=== PATIENT | male | born 1985 | race Caucasian/White ===

== ENCOUNTER 2023-12-07 15:47 | Emergency (ER) | payer SELFPAY ==
[2023-12-07 15:44] VITALS: BP 143/80; PULSE 95; RESP 18; TEMP 36.8; O2SAT 99
--- NOTE | 2023-12-07 15:45 | RT.EKG_ITS ---
APPROVED REPORT Exam: Resting ECG Reason for Exam: withdrawl- methadone Patient Location: E HR:78 bpm ECG Measurements Heart Rate 78 AXIS DE 159 P 73 QRSd 80 QRS 76 QT 355 T 63 QTc 404 Conclusion Sinus rhythm...normal P axis, V-rate 60- 99 ST elev, probable normal early repol pattern...ST elevation, age<55 Narrow complex normal sinus rhythm at a rate of 78. Normal axis. Intervals within normal limits. M ild concave ST segment upsloping in V3. No prior for comparison. No acute injury pattern. No ST se gment depressions. T wave flattening in aVL.
[2023-12-07] MEDS: Ondansetron O.D.T. 4 MG TABEF PO (16:12)
[2023-12-07] MEDS: Famotidine 20 MG TAB 40 MG PO (16:12)
--- NOTE | 2023-12-07 16:27 | ED.GENADUL_ITS ---
HPI General Mode of arrival: ambulatory . Date/Time Provider Initiated Documentation: 12/07/23 15:47 . Limitations to Documentation: no limitations . Information obtained by: patient and RN notes reviewed . History of Present Illness 38 year old M presents to the emergency department with the chief complaint of Nausea vomiting, methadone withdrawal, described as moderate and similar to prior episodes, Patient started experiencing this day(s) (1) and it has been constant. No relieving factors improve symptom(s), Eating worsens symptoms . Patient notes no other symptoms.. Patient did receive the following treatments prior to arrival, none Related Data Home Medications Medication Instructions Recorded Confirmed methadone 10 mg/mL oral concentrate 80 mg PO DAILY 12/07/23 12/07/23 Allergies Allergy/AdvReac Type Severity Reaction Status Date / Time No Known Allergies Allergy Unverified 12/07/23 15:59 General Stated Complaint: DrugWithdr/MAT ARTURO: 3 Review of Systems Constitutional Constitutional: Reports chills, Reports excessive sweating, Denies fever(s), Denies headache(s) and Denies poor appetite ENT Ears, Nose, Mouth, and Throat: Denies headache(s), Reports nasal discharge and Denies sore throat Cardiovascular Cardiovascular: Denies chest pain and Denies dyspnea Respiratory Respiratory: Denies dyspnea Gastrointestinal Gastrointestinal: Denies abdominal pain, Reports diarrhea, Reports nausea and Reports vomiting Integumentary/Breasts Skin/Breast: Denies rash Neurologic Neurologic: Denies headache(s) and Reports tremor(s) Endocrine Endocrine: Reports excessive sweating and Reports flushing Exam Const General: cooperative Orientation: alert, awake and oriented x3 Resp Effort & Inspection: normal respiratory effort and able to speak in complete sentences Auscultation: clear to auscultation bilaterally Cardio Rate: regular rate Rhythm: regular rhythm Heart Sounds: S1 normal and S2 normal GI Palpation: soft, not firm, no guarding, no masses, no pulsatile masses, not rigid and nontender Auscultation: normal bowel sounds Back/Spine/Pelvis Back: no CVA tenderness Neuro General: patient alert, patient awake, patient oriented x3, gait normal and moves all extremities Course Vital Signs Vital signs: Vital Signs Temperature 36.8 C 12/07/23 15:44 Pulse 95 H 12/07/23 15:44 Respiratory Rate 18 12/07/23 15:44 Blood Pressure 143/80 H 12/07/23 15:44 Pulse Oximetry 99 12/07/23 15:44 Temperature 36.8 C 12/07/23 15:44 Temperature Source Oral 12/07/23 15:44 Pulse 95 H 12/07/23 15:44 Respiratory Rate 18 12/07/23 15:44 Respiratory Effort Normal 12/07/23 16:02 Blood Pressure 143/80 H 12/07/23 15:44 Blood Pressure Position Sitting 12/07/23 15:44 Pulse Oximetry 99 12/07/23 15:44 Oxygen Delivery Method Room Air 12/07/23 15:44 Oxygen Flow Rate 0 12/07/23 15:44 Medical Decision Making Patient presenting to the emergency department for chief complaint of methadone withdrawal. Patient reports his last dose was on Friday and he relocated to this area due to him being homeless and there being availability at local hotel. Patient states that he is withdrawn 3 times and has had similar symptoms. He complains of runny nose, vomiting, intermittent chills and agitation. He does report couple days ago he had some cocaine and that he is a daily drinker. Patient does state history of GERD with GERD like symptoms currently otherwise denies all past medical history. He states he has been on methadone for the last 3 years and came to the emergency department due to not wanting to utilize street drugs for opiate abuse anymore. Review of vital signs show slight hypertension, slight tachycardia but within normal range. Exam shows stable appearing patient with no acute distress and no worrisome exam findings. Will treat patient with Zofran, GI cocktail, and Pepcid. Will also perform EKG due to potential QT issues with Zofran and methadone. Please see physician interpretation for full interpretation of EKG but upon my review patient is in sinus rhythm, no worrisome QT findings otherwise noncontributory EKG with no signs of acute STEMI. Labs reviewed and CBC is unremarkable, CMP does show increase of AST ALT and alk phos otherwise nondiagnostic CMP, lipase is within normal range, alcohol is elevated at 74 but patient not clinically intoxicated. Was able to speak with [facility] and [facility] who verified patient's dose of 80 mg. Did inform them of patient's stated intention to switch to local clinic which they requested patient call the clinic for this arrangement. Patient was given his dose and did state improvement of other symptoms. After discussion of diagnosis and plan of care patient has no further needs, questions, or concerns and states clear understanding to return to the emergency department for any worsening symptoms. This documentation was generated using [employer] dictation system, please disregard any oddities of phrase or misspellings. Lab Data Lab results reviewed: Yes I reviewed the patient's lab results. Quality:SDOH Health Related Social Needs: Health related social needs inadequate housing, risk o f homeless, food insecurity, transpo insecurity, material hardship, personal safety PFSH All Active Problems (Updated 12/07/23 @ 17:34 by Jared Gonzales [employer]) Elevated liver enzymes (Acute) Acute narcotic withdrawal (Acute) GERD (gastroesophageal reflux disease) (Chronic) Social History Smoking/Tobacco Use Status: Current-Occasional Smoking risk assessment performed?: Yes Housing: homeless [facility] Have you Been Recently Intoxicated or Drunk Within the Last 30 days?: No Have you Ever Experienced Previous Episodes of Alcohol Withdrawal?: Yes Have you ever Experienced Withdrawal Seizures?: No Have you ever Experienced Delirium Tremens(DT)s?: No Have you ever undergone Alcohol Rehabilitation Treatment (i.e, inpt ot outpatient treatment programs)?: No Have you ever Experienced Blackouts?: No Have you ever Combined Alcohol with other Downers within the last 90 days?: No Have you ever Combined Alcohol with any other Substance of Abuse during the last 90 days?: No Positive Blood Alcohol level on Presentation? [PCS.BAL]: No Evidence of Increased Autonomic Activity (i.e. HR>120, tremor, sweating, agitation, nausea)?: No Result: 1 Discharge Plan Disposition Patient Disposition: Home Discharge Details Clinical Impression: Acute narcotic withdrawal, GERD (gastroesophageal reflux disease), Elevated liver enzymes Primary Care Provider: Unknown,Unknown ED Provider: Jared Gonzales Home Meds and New Rx's Prescriptions: No Action methadone 10 mg/mL concentrate 80 mg PO DAILY Patient Comments: not confirmed by [facility] 12/07/23 1600 Discharge Instructions Instructions: GERD (Gastroesophageal Reflux Disease) (ED), Narcotic Withdrawal (ED) Additional Instructions: It is very important that you follow-up with the [facility] clinic to continue receiving your doses and to transfer care to the [facility] [place]. Please return the emergency department for any new or significant worsening of symptoms Follow-up with your primary care provider for further investigation of your elevated liver enzymes Referrals: Primary Care Provider [Outside]
[2023-12-07] MEDS: Normal Saline 1,000 ML 1000 ML IV (16:57)
[2023-12-07 17:02] LABS: Abs Immature Grans 0.02 10^3/uL (0.0-0.06); Absolute Basophil Count 0.05 10^3/uL (0.0-0.2); Absolute Lymphocyte Count 1.21 10^3/uL (1.2-3.4); Absolute Monocyte Count 0.66 10^3/uL (0.1-0.8); Absolute Neutrophil Count 5.52 10^3/uL (1.2-6.7); Basophils % 0.7; Eosinophils % 1.3; HGB 14.7 g/dL (13.5-17.5); Immature Grans % 0.3; MCH 31.4 pg (27.0-33.0); MCHC 34.2 % (32.0-36.0); MCV 92 fL (80-95); MPV 9.7 fL (8.0-11.0); Monocytes % 8.7; Platelet Count 309 10^3/uL (130-400); RBC 4.68 10^6/uL (4.36-5.78); RDW 12.6 % (11.8-14.1); RDW-SD 43.1 fL; WBC 7.56 10^3/uL (4.4-10.8)
[2023-12-07 17:19] LABS: ALT 140 U/L (16-63); AST 94 U/L (15-37); Albumin 3.8 g/dL (3.4-5.0); Alkaline Phosphatase 332 U/L (46-116); Anion Gap 9.9 mmol/L (3-11); BUN 12 mg/dL (7-18); Bilirubin, Total 0.3 mg/dL (0.2-1.0); CO2 28.1 mmol/L (21.0-32.0); CREATININE 0.5 mg/dL (0.70-1.30); Calcium 8.9 mg/dL (8.5-10.1); Chloride 103 mmol/L (98-107); Estimated GFR 135.56 (mL/min/1.73m2); Glucose 117 mg/dL (74-106); Lipase 77 U/L (16-77); Magnesium 2.3 mg/dL (1.8-2.4); Potassium 3.9 mmol/L (3.5-5.1); Sodium 141 mmol/L (136-145); Total Protein 7.6 g/dL (6.4-8.2)
[2023-12-07] MEDS: Nicotine 4 MG GUM CH (18:18)
[2023-12-07] MEDS: Methadone 10 MG TAB 80 MG PO (18:24)
== END 2023-12-07 18:30 | disposition home or self-care (01) ==
LOC: ER 18:44
PROVIDERS: Emergency Provider Nurse Practitioner Family
DX: F11.23 Opioid dependence with withdrawal (principal); K21.9 Gastro-esophageal reflux disease without esophagitis; R74.01 Elevation of levels of liver transaminase levels
CPT/HCPCS: 36415; 80053; 83690; 93005; 99284; 80320; 83735; 85025; 93010